=== PATIENT | female | born 1995 | race African-American/Black ===

== ENCOUNTER 2021-03-15 05:46 | Inpatient (IN) | payer OTHER ==
--- NOTE | 2021-03-03 12:48 | HPE ---
HISTORY AND PHYSICAL DATE OF ADMISSION: 03/15/2021 This lady is a 25-year-old 2, para 1, last menstrual period (LMP) 07/08/2020, estimated date of confinement (EDC) 03/21/2021, who is being admitted for elective repeat section. MEDICAL HISTORY: She had a failed induction of labor at 40 weeks of gestation. Had a section after 15-20 hours of labor, 3.7 kg, failure to dilate beyond 5 cm and failure to descent. She also has a history of thrombocytopenia. Platelets were as low as 104 at 28 weeks. She has gastroesophageal reflux disease (GERD), which has worsened since 28 weeks of gestation. ALLERGIES: No known allergies. MEDICATIONS: Presently taking magnesium oxide, Zofran, and vitamins. The rest of the examination is unremarkable. She is normocephalic, atraumatic. Neck: Full range of motion. Pupils equal and reactive to light. Distal pulses are symmetric. No evidence of deep venous thrombosis (DVT), pulmonary embolus (PE), or superficial phlebitis. Chest is clear bilaterally to bases. No wheezes or rhonchi. No costovertebral angle (CVA) tenderness. Abdomen is soft. Four-quadrant bowel sounds are noted. Incisional scar is not causing any difficulty. No rashes, lesions or pruritus. No arthralgia or myalgia. No urgency or frequency. No nausea or vomiting. She does have GERD. She has no urgency or frequency. No edema. Her blood pressure today is 130/56, respirations are 18, pulse is 78. She presently is at 198 pounds with her height of 5 feet 5 inches and her body mass index (BMI) of 28.5. We discussed the risks and benefits of repeat section. Based on inability to get previous records, the fact that she failed to dilate and failed to progress, and without knowing the integrality of the uterus, her best option is a repeat section. Expressed understanding of same. 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 Leave at home locked up in a cupboard. Expressed understanding of same. We had a 30-minute discussion. All questions were answered. Patient was given instructions regarding awaiting the phone call from labor and delivery for admission for repeat section. We are now awaiting anesthesia consultation. All questions were answered.
[2021-03-15] VITALS (23 sets, daily range): BP systolic 100–127; BP diastolic 51–83
[~2021-03-15] VITALS: Ht 167.6 cm; Wt 88.5 kg
[2021-03-15] MEDS ORDERED: LR 1,000 ML IV ONE (06:10)
[2021-03-15] MEDS ORDERED: ceFAZolin SOD 2 GM in IV 1 EA IV ONE (06:10)
[2021-03-15] MEDS ORDERED: LR 1,000 ML IV SCH ×2 (06:10→10:25)
[2021-03-15] MEDS: BICITRA 30ML SOLN UDC PO ONE ×2 (06:10→07:48)
[2021-03-15] MEDS ORDERED: BUPIVACAINE HCL 0.25% 10ML VIAL XX ONE (06:15)
[2021-03-15] MEDS ORDERED: ACETAMINOPHEN 650 MG SUPP PR ONE (06:15)
[2021-03-15] MEDS ORDERED: AZITHROMYCIN INJ 500 MG, VIAL MATE ADAPTER 1 EACH in NS 250 ML IV ONE (06:15)
[2021-03-15] MEDS ORDERED: OXYTOCIN INJ 10 UNITS/ML VIAL (J2590) As Ordered ONE (07:06)
[2021-03-15] MEDS ORDERED: MORPHINE PRES-FREE INJ 10 MG/10 ML VIAL (J2274) As Ordered ONE (07:07)
[2021-03-15] MEDS ORDERED: ONDANSETRON 4MG/2ML VIAL As Ordered ONE ×3 (07:10→10:35)
[2021-03-15] MEDS ORDERED: KETOROLAC 60MG 2ML VIAL As Ordered ONE (07:10)
[2021-03-15] MEDS ORDERED: dexameTHASONE 4 MG/ML 1ML VIAL (J1100 PER 1MG) As Ordered ONE (07:10)
[2021-03-15 07:12] LABS: HEMATOCRIT 37.6 % (36.0-47.0); HEMOGLOBIN 12.2 g/dl (12.0-15.5); MEAN CORPUSCULAR HEMOGLOBIN 28.9 pg (27.0-33.0); MEAN CORPUSCULAR HGB CONC 32.4 g/dl (32.0-36.5); MEAN CORPUSCULAR VOLUME 89.1 fl (80.0-96.0); PLATELET COUNT, AUTOMATED 134 10^3/uL (150-450); RED BLOOD COUNT 4.22 10^6/uL (4.00-5.40); WHITE BLOOD COUNT 9.1 10^3/uL (4.0-10.0)
[2021-03-15] MEDS ORDERED: ONDANSETRON 4MG/2ML VIAL IV ONE (07:25)
[2021-03-15] MEDS ORDERED: NALOXONE INJ 0.4MG/1ML VIAL (J2310 PER 1MG) IV PRN ×2 (08:28)
[2021-03-15] MEDS ORDERED: diphenhydrAMINE 50MG/ML VIAL (J1200) IV PRN (08:28)
[2021-03-15] MEDS ORDERED: ONDANSETRON 4MG/2ML VIAL IV PRN ×2 (08:28→10:25)
[2021-03-15] MEDS ORDERED: NALBUPHINE HCL 10 MG/ML AMP (J2300) IV PRN (08:28)
[2021-03-15] MEDS ORDERED: METOCLOPRAMIDE INJ 10MG/2ML VIAL (J2765 PER 1) IV PRN ×2 (08:28→10:25)
[2021-03-15] MEDS ORDERED: PHENYLephrine 500MCG 5ML (100MCG/ML) SYRINGE As Ordered ONE (08:57)
[2021-03-15] MEDS ORDERED: ePHEDrine SULFATE 25 MG/5 ML(5MG/ML) SYRINGE As Ordered ONE (08:57)
[2021-03-15] MEDS ORDERED: KETAMINE HCL 200 MG/20 ML VIAL As Ordered ONE (09:09)
[2021-03-15] MEDS ORDERED: propofoL 200 MG/20 ML VIAL As Ordered ONE (09:14)
[2021-03-15 09:21] LABS: CORD GAS ABE A -8.5; CORD GAS HCO3 A 22.4 MEQ/L; CORD GAS O2 SAT A 29.9 %; CORD GAS PCO2 A 72.9 mmHg; CORD GAS PH A 7.106 UNITS; CORD GAS PO2 A 19.7 mmHg; CORD GAS SBC A 16.3 MEQ/L; CORD GAS TCO2 A 24.7 MEQ/L
[2021-03-15 09:23] LABS: CORD GAS HCO3 V 23.1 MEQ/L; CORD GAS PCO2 V 55.2 mmHg; CORD GAS PH V 7.24 UNITS; CORD GAS PO2 V 17.8 mmHg; CORD GAS SBC V 18.9 MEQ/L; CORD GAS TCO2 V 24.8 MEQ/L
[2021-03-15] MEDS ORDERED: OXYTOCIN 30 UNITS IN 0.9% NaCl 500ML IV BAG (J2590) As Ordered ONE ×2 (09:45→10:39)
[2021-03-15] MEDS ORDERED: SIMETHICONE 80MG CHEW TAB PO PRN (09:50)
[2021-03-15] MEDS ORDERED: METHYLERGONOVINE MALEATE 0.2 MG TAB PO PRN (09:50)
[2021-03-15] MEDS ORDERED: OXYTOCIN INJ 10 UNITS/ML VIAL (J2590) IV ONE (09:50)
[2021-03-15] MEDS ORDERED: MEASLES,MUMPS,RUBELLA VACCINE INJ (MMR-II) (90707) SC SCH (09:50)
[2021-03-15] MEDS ORDERED: OXYTOCIN DRIP 30 UNITS in IV 1 EA IV ONE (09:50)
[2021-03-15] MEDS ORDERED: ANUSOL HC CREAM 30GM TOP PRN (09:50)
[2021-03-15] MEDS ORDERED: MOM 30ML SUSPENSION UDC PO PRN (09:50)
[2021-03-15] MEDS ORDERED: RHOGAM 300 MCG (1500 IU) INJ (J2790) IM SCH (09:50)
[2021-03-15] MEDS ORDERED: PERCOCET 5MG/325MG TAB PO PRN ×3 (09:50→10:25)
[2021-03-15] MEDS ORDERED: fentaNYL 100 MCG/2 ML INJECTION (J3010) IV PRN (10:25)
[2021-03-15] MEDS: LR 1,000 ML IV SCH ×3 (10:40→22:13)
[2021-03-15] MEDS: PRENATAL VITAMINS CHEWABLE TABLET PO SCH (16:38)
[2021-03-15] MEDS: KETOROLAC 30 MG/ML 1ML VIAL IV SCH ×2 (16:38→22:13)
[2021-03-16 02:00] VITALS: BP 102/58
[2021-03-16] MEDS: KETOROLAC 30 MG/ML 1ML VIAL IV SCH (04:07)
[2021-03-16 06:00] VITALS: BP 106/53
[2021-03-16 07:07] LABS: HEMATOCRIT 24.6 % (36.0-47.0); MEAN CORPUSCULAR HEMOGLOBIN 29.2 pg (27.0-33.0); MEAN CORPUSCULAR HGB CONC 32.5 g/dl (32.0-36.5); MEAN CORPUSCULAR VOLUME 89.8 fl (80.0-96.0); PLATELET COUNT, AUTOMATED 116 10^3/uL (150-450); RED BLOOD COUNT 2.74 10^6/uL (4.00-5.40); WHITE BLOOD COUNT 12.7 10^3/uL (4.0-10.0)
--- NOTE | 2021-03-16 07:31 | IPNPDOC ---
Progress Note Date of Service: Mar 16, 2021 Day#: 1 Progress Note SUBJECT: Mrs. Qian Waller is a 25-year-old 2 now Para 2-0-0-2 who is PPD#1 status post uncomplicated, elective repeat low transverse caesarean section productive of a viable female on Saturday, 15 March 2021. This morning, Mrs. Waller reports pain at her incision site that is not relieved with Motrin & Tylenol. Otherwise, she has been ambulating; is tolerating regular diet; is passing flatus. Her zabala catheter was removed this morning and she has a due-to-void pending. Her lochia is similar to a normal menstrual cycle. The patient is breast & bottled feeding because "her breast are not putting out enough milk". She declines contraception at this time. OBJECTIVE: VITAL SIGNS: Within normal limits, afebrile. General: Alert and oriented times three. Lungs: Breath sounds clear to auscultation. Heart: Regular rate and rhythm, no murmurs, rubs or gallops. Abdomen: Pressure dressing was taken down; Incision was c/d/i with Steri-strips; Fundus firm at U-2. ASSESSMENT: Mrs. Waller is a 25-year-old 2 now Para 2-0-0-2 status post uncomplicated repeat low transverse section who is doing well on day 1. Vitals within normal limits, afebrile, hemodynamically stable with no evidence of infection. PLAN: 1. Oxycodone, Tylenol and Motrin for pain. 2. Encourage breast feeding and ambulation. 3. Anticipate discharge to home tomorrow (Saturday, 17 March 2021) 3. Incision Check in 2 weeks in clinic 4. Routine PP visit in 6 weeks in clinic. VS, I&O, 24H, Fishbone Vital Signs/I&O Vital Signs Date Time Temp Pulse Resp B/P (MAP) Pulse Ox O2 Delivery O2 Flow Rate FiO2 03/16/21 06:00 97.5 72 16 106/53 (70) 100 Room Air I&O- Last 24 Hours up to 6 AM 03/16/21 05:59 Intake Total 4555 ml Output Total 2950 ml Balance 1605 ml Laboratory Data 24H LABS Laboratory Tests 2 03/15/21 09:12: Cord Arterial Blood pH 7.106, Cord Arterial Blood PCO2 72.9, Cord Arterial Blood PO2 19.7, Cord Arterial Blood HCO3 22.4, Cord Arterial Blood Total CO2 24.7, Cord Arterial Blood Base Excess -8.5, Cord Arterial Base Excess (Standard 16.3, Cord Arterial Bld Oxygen Saturation 29.9, Cord Venous Blood pH 7.240, Cord Venous Blood PCO2 55.2, Cord Venous Blood PO2 17.8, Cord Venous Blood HCO3 23.1, Cord Venous Blood Total CO2 24.8, Cord Venous Base Excess (Actual) -5.0, Cord Venous Base Excess (Standard) 18.9, Cord Venous Blood Oxygen Saturation 32.0 03/16/21 06:53: Nucleated Red Blood Cells % (auto) 0.0 CBC/BMP Laboratory Tests 03/16/21 06:53 RYAN VILLALPANDO M.D. Mar 16, 2021 07:31
[2021-03-16] MEDS: PRENATAL VITAMINS CHEWABLE TABLET PO SCH (08:11)
[2021-03-16] MEDS: DOCUSATE SODIUM 100MG CAPSULE PO PRN (08:12)
[2021-03-16] MEDS ORDERED: PRENATAL VITAMINS CHEWABLE TABLET PO SCH (09:00)
[2021-03-16 10:25] VITALS: BP 108/52
[2021-03-16] MEDS ORDERED: IBUPROFEN 600MG TAB PO PRN (12:00)
[2021-03-16 14:00] VITALS: BP 109/59
[2021-03-16] MEDS: IBUPROFEN 800 MG TAB PO SCH ×2 (16:21→21:18)
[2021-03-16 18:01] VITALS: BP 112/56
[2021-03-16 22:00] VITALS: BP 130/60
[2021-03-17 02:00] VITALS: BP 120/67
[2021-03-17 06:00] VITALS: BP 117/66
[2021-03-17] MEDS: IBUPROFEN 800 MG TAB PO SCH ×3 (06:37→22:48)
--- NOTE | 2021-03-17 06:52 | IPNPDOC ---
Progress Note Date of Service: Mar 17, 2021 Progress Note Qian Waller is a 25-year-old G2 now P2 who is POD#2 s/p uncomplicated, scheduled RLTCS on 15Mar2021 for placenta previa. This morning Ms. Waller reports pain at her incision and when ambulating. She does not feel well enough to go home at this time. Her lochia is minimal. She is voiding and passing gas without issues. VITAL SIGNS: Within normal limits, afebrile. General: Alert and oriented times three. Lungs: Breath sounds clear to auscultation. Heart: Regular rate and rhythm, no murmurs, rubs or gallops. Abdomen: Soft, non distended. Fundus firm at U-2. Incision covered with steri strips. Incision somewhat weepy in the midline, though intact across entire length. Tender to palpation. UO - appropriate Labs: pre op H/H 12.2/37.6 ---> 8.0/24.6 yesterday AM Qian is stable today, though she reports her pain is not well controlled currently. She has not taken percocet this AM and I recommended she try some. Will watch closely today. If she feels better later today then she can be discharged home. She has her medications at home already. All patient and questions answered. Jimmy VS, I&O, 24H, Renaldo Vital Signs/I&O Vital Signs Date Time Temp Pulse Resp B/P (MAP) Pulse Ox O2 Delivery O2 Flow Rate FiO2 03/17/21 06:00 97.7 83 16 117/66 (83) 99 Room Air I&O- Last 24 Hours up to 6 AM 03/17/21 05:59 Intake Total 300 ml Output Total 1000 ml Balance -700 ml Laboratory Data 24H LABS Laboratory Tests 2 03/16/21 06:53: Nucleated Red Blood Cells % (auto) 0.0 CBC/BMP Laboratory Tests 03/16/21 06:53 AKHIL FERGUSON DO Mar 17, 2021 06:52
[2021-03-17] MEDS: DOCUSATE SODIUM 100MG CAPSULE PO PRN (09:46)
[2021-03-17] MEDS: PRENATAL VITAMINS CHEWABLE TABLET PO SCH (09:47)
[2021-03-17 10:00] VITALS: BP 116/59
[2021-03-17 14:00] VITALS: BP 129/76
[2021-03-17 18:00] VITALS: BP 117/55
[2021-03-17] MEDS: ACETAMINOPHEN 500 MG TAB PO PRN (20:24)
[2021-03-18] MEDS: IBUPROFEN 800 MG TAB PO SCH (05:59)
[2021-03-18 06:00] VITALS: BP 112/55
--- NOTE | 2021-03-18 07:40 | IPNPDOC ---
Progress Note Date of Service: Mar 18, 2021 Day#: 3 Progress Note SUBJECT:Ms. Waller is a 25yo POD3 after a repeat . Her w as uncomplicated with the exception of thrombocytopenia, her most recent platelets were 116. She has been ambulating, voiding spontaneously without issue and tolerating regular diet. Breast feeding without issue. Reports lochia is [like a normal period]. Patient is ambulating well. [Reports some cramping with . Denies any pain. Voiding and stooling without difficulty]. OBJECTIVE: VITAL SIGNS: Within normal limits, afebrile. Alert and oriented times three. No increased WOB. Heart rate: non-tachycardic Abdomen: Fundus firm at U-2. Soft, NTTP. Pfannenstiel incision is clean dry and well approximated with steri strips. Minimal lochia per patient ASSESSMENT: Ms. Waller is a 25yo POD3 after a repeat . Her was uncomplicated with the exception of thrombocytopenia, her most recent platelets were 116. Vitals within normal limits, afebrile, hemodynamically stable with no evidence of infection. PLAN: 1. Discharge to home today. 2. Tylenol and Motrin for pain. OxyIR for breakthrough. 3. Encourage breast feeding and ambulation. 4. Will use condoms for control. 5. Routine PP visit in 2 and 6 weeks in clinic. 6. Discussed activity limitations (lifting, pelvic rest) and return precautions at length. 7. Plan for repeat platelets at her 6wk appointment. VS, I&O, 24H, Fishbone Vital Signs/I&O Vital Signs Date Time Temp Pulse Resp B/P (MAP) Pulse Ox O2 Delivery O2 Flow Rate FiO2 03/18/21 06:00 98.0 78 18 112/55 (74) 03/17/21 18:00 99 Room Air BUSTER ROGERS DO Mar 18, 2021 07:40
--- NOTE | 2021-03-18 07:41 | OBDS ---
[facility] Obstetrical Discharge Sum. Obstetrical Discharge Summary Date: Mar 18, 2021 A/P, Post Course List any complications SUBJECT:Ms. Waller is a 25yo after a repeat . Her was uncomplicated with the exception of thrombocytopenia, her most recent platelets were 116. She has been ambulating, voiding spontaneously without issue and tolerating regular diet. Breast feeding without issue. Reports lochia is [like a normal period]. Patient is ambulating well. Reports some cramping with . Denies any pain. Voiding and stooling without difficulty. Vitals within normal limits, afebrile, hemodynamically stable with no evidence of infection. PLAN: 1. Discharge to home today. 2. Tylenol and Motrin for pain. OxyIR for breakthrough. 3. Encourage breast feeding and ambulation. 4. Will use condoms for control. 5. Routine PP visit in 2 and 6 weeks in clinic. 6. Discussed activity limitations (lifting, pelvic rest) and return precautions at length. 7. Plan for repeat platelets at her 6wk appointment. BUSTER ROGERS DO Mar 18, 2021 07:41
[2021-03-18] MEDS: PRENATAL VITAMINS CHEWABLE TABLET PO SCH (08:31)
[2021-03-18] MEDS: ACETAMINOPHEN 500 MG TAB PO PRN (08:37)
--- NOTE | 2021-03-29 13:47 | RO ---
OPERATIVE NOTE DATE OF OPERATION: 03/15/2021 PREOPERATIVE DIAGNOSIS: Thrombocytopenia and failed previous induction of labor. OPERATION PROPOSED: Repeat section OPERATION PERFORMED: Repeat section. ANESTHESIA: Spinal plus local anesthetic for intraperitoneal procedures. ESTIMATED BLOOD LOSS: 700 mL. SURGEON: Dr. Castaneda ENGINEERING AND DEVELOPMENT DIRECTOR: Dr. Jung for extraction, retraction, visualization, for without which the procedure could not be completed. After adequate anesthesia, prepped and draped in the supine position. Pemberton catheter in the bladder draining clear urine. Acetaminophen suppository, 1300 mg per rectum. Antibiotics appropriately preoperatively and sequentials place. A Pfannenstiel incision was made two fingerbreadths above the symphysis pubis through the previous Pfannenstiel incision, passing through abdominal layers and securing hemostasis. Opening the peritoneal cavity, we noticed several things. One is this lady has a very prominent sacrum, elevated, which is pushing the baby's head in an asynclitic position to the symphysis pubis, which is very prominent. Also the baby's head being asynclitic was difficult to extract at the time, and subsequently this lady also has a fibroid in the anterior aspect of the uterus, which did not allow us to put the Mobius in place; however, after reflecting the bladder down somewhat, a low transverse incision was made into the uterus. We delivered a live- female infant, weighing 9 pounds 5 ounces, 4220 grams, scores of 8 and 9 at one and five minutes, respectively. Arterial pH was 7.10, base excess -8.5, venous pH 7.24, base excess -5.0. Because of the asynclitism, we had to stabilize the baby's head in order to extract it. Once the baby was delivered, the baby was handed off to neonatology. The cord pH was performed, and cord blood was extracted. Three vessels. Manual exploration. Removed the rest of the placenta. The patient then had a bit of airway obstruction, which was dealt with with anesthesia. the uterus contracted down well under Pitocin. The lower segment was oversewn in the usual fashion in two layers and reperitonealization was performed. With instrument and pad count correct, both ovaries and tubes appeared to be normal. Hemostasis was secured. We then closed the abdomen with running stitch for the peritoneum, same for the fascia in two layers, and reperitonealizing that area. Interrupted for the fascia, subcutaneous tissue, and then subcuticular with 4-0 Monocryl. Marcaine 0.25% 10 mL and a Optifoam dressing was placed. The patient was then sent to recovery in good condition.
== END 2021-03-18 13:30 | disposition home or self-care (01) | DRG 772 ==
LOC: M LDI 05:46 → EDUNIT# 07:30 → M OBS 12:24
PROVIDERS: ADMIT Obstetrics & Gynecology; ATTEND Obstetrics & Gynecology
PROC: 10D00Z1 Extraction of Products of Conception, Low, Open Approach (ICD-10-PCS; principal; 2021-03-15 07:30)
DX: O34.211 Maternal care for low transverse scar from previous cesarean delivery (principal); O99.12 Other diseases of the blood and blood-forming organs and certain disorders involving the immune mechanism complicating childbirth; Z3A.40 40 weeks gestation of pregnancy; Z37.0 Single live birth; O66.5 Attempted application of vacuum extractor and forceps; O61.0 Failed medical induction of labor; D69.6 Thrombocytopenia, unspecified